=== PATIENT | female | born 1960 | race Caucasian/White ===

== ENCOUNTER 2016-11-22 12:57 | Emergency (ER) | payer OTHER ==
[~2016-11-22] VITALS: Ht 160 cm; Wt 48.2 kg
[2016-11-22 13:14] VITALS: BP 122/73; PULSE 92; RESP 18; O2SAT 100
--- NOTE | 2016-11-22 13:20 | ED.REPORT ---
HPI-Extremity Problem Upper Date of Service Nov 22, 2016 ED Provider: Yovani Galan DO Pt is a 56 year old female with a history of MRSA who presents to the ED complaining of right wrist pain onset this morning when she woke up. The pt is concerned because she noticed red streaks from her right wrist to her axilla. She reports that she has been ill recently with non-productive cough, chills, and body aches. She denies any other symptoms. Per pt, she was fixing a screen door when her hand slipped and she accidentally scratched her right wrist. She states that her wrist feels "tight." Nursing Notes Stated Complaint: INFECTION ON RT HAND, RED LINE UP ARM Chief Complaint: Extremity Trauma Nursing Notes Reviewed: Yes Allergies: Coded Allergies: No Known Allergies (Unverified , 11/22/16) Scheduled Amoxicillin/Clav K 875-125 mg (Augmentin 875-125 mg) 1 Each Tablet 1 TABLET PO BID Sulfamethoxazole/Trimeth 800-160 mg (Bactrim DS 800-160 mg) 1 Each Tablet 1 TABLET PO BID Scheduled PRN Benzonatate (Tessalon Perle) 100 Mg Capsule 100 MG PO TID PRN PRN For Cough Ibuprofen (Ibuprofen) 800 Mg Tablet 800 MG PO TID PRN PRN For Pain General Time Seen by MD: 13:20 Chief Complaint Arm injury right Hx Obtained From: Patient Arrived By: Walk-in Onset Occurred: 5 - 8 hours ago Symptom Duration: Since onset Caused by: Accidental Location: : Wrist right Quality: Painful Severity: Current: Moderate Severity: Maximum: Moderate Immunizations: Tetanus up to date Recent Healthcare: No recent doctor visit, No recent hospitalization Similar Sx Previous: No Past Medical History Past Medical History MRSA Hypotension Denies: Diabetes mellitus, Hyperlipidemia, Hypertension Past Surgical History [place] teeth Ankle Neck Shoulder 2x Smoking History Current Every Day Smoker Social History Alcohol Use: "Social" Drug Use: Denies drug use Ambulatory Status Independent Review of Systems + body aches + left upper extremity erythema Constitutional: Reports: Chills, Denies: Fever Musculoskeletal: Reports: Extremity pain (right wrist) Complete sys rev & neg: except as marked. Respiratory: Reports: Non-productive cough Physical Exam Initial Vital Signs Vital Signs (First) Date Time Temp Pulse Resp B/P Pulse Ox O2 Delivery O2 Flow Rate FiO2 9/13/17 13:14 37.2 92 18 122/73 100 Room Air Initial VS: Reviewed Head / Eyes: Atraumatic, Normocephalic Neck: Supple, Full range of motion Respiratory: Breath sounds normal, Clear to auscultation, No respiratory distress Cardiovascular: Regular rate & rhythm, Heart sounds normal, Intact distal pulses Abdomen / GI: Soft, Non-tender Lower Extremities: Vascular intact, Neuro intact Skin: Warm, Dry, No cyanosis Neurologic: Alert, Oriented, Nonfocal Psychiatric: Mood/affect normal, Behavior normal General/Constitutional: Awake, Alert Upper Extremity / MS: Neurologic intact, Vascular intact Very superficial abrasion to the right wrist. 2+ radial pulse. Normal capillary refill. Normal motor and sensory function. Full active range of motion. Lymphangitis tracking from her right wrist up to the medial axilla. Re-Eval/Medical Decision Med Decision/Clinical Course Findings of cellulitis and lymphangitis without indication of septic joint, patient has full range of motion of the wrist and is neurovascular intact no evidence of abscess. Incidentally also has reported cough and sputum with normal lung sounds bilaterally. We'll treat with Bactrim and Augmentin for both skin and soft tissue and pulmonary causes. Also given Tessalon Perles and ibuprofen. Return and follow-up precautions given. Source of Hx: Old records Re-Evaluation/Progress : Time of Eval: 13:43 Re-Evaluation/Progress Note: Pt rechecked. Informed pt of plan for discharge. Pt understands and agrees with plan for discharge. F/U instructions and RTER warnings given. All questions addressed. Counseled Regarding: Diagnosis, Need for follow-up, When/why to return to ED Discharge & Departure Impression: Primary Impression: Lymphangitis Disposition: Home Discharge Condition All VS Reviewed: Yes Condition: Stable Patient Instructions: Lymphangitis (ED) Additional Instructions: Thank you for trusting us with your care today. Keep your wound covered and apply antibiotic ointment. Take your medication as prescribed. Call your primary care provider tomorrow for a follow up in the next 2-3 days. Return to the Emergency Department for any new or concerning symptoms such as decreased range of motion or discharge. Referrals: OTHER,PHYSICIAN (PCP) Scribe Attestation Portions of this note were transcribed by Gloria Souza. I, Dr. Galan personally performed the history, physical exam and medical decision-making; I reviewed and confirmed the accuracy of the information in the transcribed note. Signed by: Wolf Harris, 11/22/16. copies to: OTHER,PHYSICIAN Yovani Galan DO Nov 22, 2016 13:20 Gloria Mcdonnell Nov 22, 2016 13:45
[2016-11-22] MEDS ORDERED: Amoxicillin-Clav 875-125 mg Tablet PO ONE (13:50)
[2016-11-22] MEDS ORDERED: Trimethoprim-Sulfa 160 mg-800 mg Tablet PO ONE (13:50)
[2016-11-22] MEDS ORDERED: SULF1TAB35 PO (14:09)
[2016-11-22] MEDS ORDERED: BENZ-12 PO (14:09)
[2016-11-22] MEDS ORDERED: AMOX-366 PO (14:09)
[2016-11-22] MEDS ORDERED: IBUP800T28 PO (14:09)
== END 2016-11-22 14:42 | disposition home or self-care (01) ==
LOC: SED 12:57
DX: S60.811A Abrasion of right wrist, initial encounter (principal); I89.1 Lymphangitis; W18.40XA Slipping, tripping and stumbling without falling, unspecified, initial encounter; Y93.89 Activity, other specified; Y92.89 Other specified places as the place of occurrence of the external cause; Y99.8 Other external cause status; F17.200 Nicotine dependence, unspecified, uncomplicated